=== PATIENT | female | born 1960 | race Two or more races ===

== ENCOUNTER 2024-05-23 00:01 | Emergency (ER) | payer OTHER ==
[~2024-05-23] VITALS: Ht 157.5 cm; Wt 63.0 kg
[2024-05-23] MEDS ORDERED: LIDOCAINE HCL 4% Topic SOLUTION TOP STA (00:40)
[2024-05-23] MEDS ORDERED: KETOROLAC TROMETHAMINE 60 MG VIAL IM STA (00:41)
[2024-05-23] MEDS ORDERED: CEFTRIAXONE SODIUM 1,000 MG VIAL IM STA (00:41)
[2024-05-23] MEDS ORDERED: CEFTRIAXONE SODIUM 1,000 MG VIAL ONE (00:48)
[2024-05-23] MEDS ORDERED: KETOROLAC TROMETHAMINE 60 MG VIAL IM ONE (00:48)
== END 2024-05-23 01:47 | disposition home or self-care (01) ==
LOC: ER 00:01
DX: J06.9 Acute upper respiratory infection, unspecified (principal); H92.01 Otalgia, right ear